=== PATIENT | male | born 1980 | race Caucasian/White ===

== ENCOUNTER 2017-08-14 18:34 | Emergency (ER) | payer BC ==
[2017-08-14] MEDS ORDERED: SUBLIMAZE 100 MCG/2 ML IV ONE (19:23)
[2017-08-14] MEDS ORDERED: Sodium Chloride 0.9% 1000 ML 1,000 ML IV STA (19:23)
[2017-08-14] MEDS ORDERED: Zofran 4 MG/2 ML VIAL IV ONE (19:23)
--- NOTE | 2017-08-14 19:28 | ERPHSYRPT ---
- History of Present Illness Time Seen by Provider: 08/14/17 19:20 Historian: patient Exam Limitations: no limitations Patient Subjective Stated Complaint: RLQ abdominal Pain beginning yesterday. Mild Nausea Triage Nursing Assessment: PT presents to the ED with complaints of RLQ abdominal pain. Pt states onset yesterday, worsening with touch. No distress noted, skin PWD. Physician History: Pt started c/o diffuse abdominal pain, nausea, now pain is located in the right lower abdomen. He denies fever, chills, diarrhea, vomiting or urinary complaints. Timing/Duration: yesterday Activities at Onset: none Quality: sharpness Abdominal Pain Onset Location: RLQ Pain Radiation: no radiation Severity of Pain-Max: moderate Severity of Pain-Current: moderate Modifying Factors: Improves With: nothing Associated Symptoms: nausea Previous symptoms: no prior history Allergies/Adverse Reactions: No Known Drug Allergies Allergy (Verified 08/14/17 18:55) Home Medications: Sertraline HCl [Sertraline HCl] 25 mg PO DAILY 08/14/17 [History] Hx Tetanus, Diphtheria Vaccination/Date Given: No Hx Influenza Vaccination/Date Given: Yes Hx Pneumococcal Vaccination/Date Given: No Immunizations Up to Date: Yes - Review of Systems Constitutional: No Symptoms Abdominal/Gastrointestinal: Abdominal Pain, Nausea All Other Systems: Reviewed and Negative - Past Medical History Pertinent Past Medical History: No Neurological History: No Pertinent History ENT History: No Pertinent History Cardiac History: No Pertinent History Respiratory History: No Pertinent History Endocrine Medical History: No Pertinent History Musculoskeletal History: No Pertinent History GI Medical History: No Pertinent History History: No Pertinent History Psycho-Social History: Depression Male Reproductive Disorders: No Pertinent History - Past Surgical History Past Surgical History: No Neuro Surgical History: No Pertinent History Cardiac: No Pertinent History Respiratory: No Pertinent History Gastrointestinal: No Pertinent History Genitourinary: No Pertinent History Musculoskeletal: No Pertinent History Male Surgical History: No Pertinent History - Social History Smoking Status: Never smoker Exposure to second hand smoke: No Drug Use: none Patient Lives Alone: No - Nursing Vital Signs Nursing Vital Signs: Initial Vital Signs Temperature 98.7 F 08/14/17 18:49 Pulse Rate 75 08/14/17 18:49 Respiratory Rate 16 08/14/17 18:49 Blood Pressure 134/86 08/14/17 18:49 O2 Sat by Pulse Oximetry 99 08/14/17 18:49 Pain Scale Pain Intensity 2 - Physical Exam General Appearance: no apparent distress Eye Exam: eyes nml inspection Ears, Nose, Throat Exam: normal ENT inspection, moist mucous membranes Neck Exam: normal inspection, non-tender Respiratory Exam: normal breath sounds, lungs clear, airway intact Cardiovascular Exam: regular rate/rhythm, normal heart sounds, normal peripheral pulses, No murmur Gastrointestinal/Abdomen Exam: soft, normal bowel sounds, tenderness (mod. severe RLQ), No pulsatile mass, No rebound, No hernia Back Exam: normal inspection, No CVA tenderness Extremity Exam: normal inspection Neurologic Exam: alert, oriented x 3, normal mood/affect Skin Exam: normal color, warm, dry, No rash Lymphatic Exam: No adenopathy SpO2 Interpretation: normal SpO2: 99 Oxygen Delivery: Room Air - Course Nursing assessment & vital signs reviewed: Yes - CT Exams Abdomen/Pelvis CT Interpretation: Tele-radiologist Report, Other (appendix normal, small focus acute epiploic mappendigitis vs diverticulitis, no free air or fluid.) Ordered Tests: Active Orders 24 hr Category Date Time Status IV Insertion STAT Care 08/14/17 19:23 Active ABDOMEN AND PELVIS W CONTRAST [CT] Stat Exams 08/14/17 19:24 Taken CBC W DIFF Stat Lab 08/14/17 19:23 Completed CMP Stat Lab 08/14/17 19:23 Completed LIPASE Stat Lab 08/14/17 19:23 Completed PROTIME WITH INR Stat Lab 08/14/17 19:23 Completed PTT Stat Lab 08/14/17 19:25 Completed UA W/RFX UR CULTURE Stat Lab 08/14/17 20:30 Completed Medication Summary Generic Name Dose Route Start Last Admin Trade Name Freq PRN Reason Stop Dose Admin Ciprofloxacin 500 mg 08/15/17 22:01 Cipro 500 Mg PO 08/15/17 22:02 NOW ONE Metronidazole 500 mg 08/15/17 22:01 Flagyl 500 Mg PO 08/15/17 22:02 NOW ONE Discontinued Medications Generic Name Dose Route Start Last Admin Trade Name Freq PRN Reason Stop Dose Admin Fentanyl Citrate 50 mcg 08/14/17 19:23 08/14/17 19:40 Sublimaze 100 Mcg/2 Ml IV 08/14/17 19:24 50 mcg STAT ONE Administration Fentanyl Citrate Confirm 08/14/17 19:30 Sublimaze 100 Mcg/2 Ml Administered 08/14/17 19:31 Dose 100 mcg .ROUTE .STK-MED ONE Sodium Chloride 1,000 mls @ 999 mls/hr 08/14/17 19:23 08/14/17 21:56 Sodium Chloride 0.9% 1000 Ml IV 08/14/17 20:23 Infused .Q1H1M STA Infusion Sodium Chloride Confirm 08/14/17 19:30 Sodium Chloride 0.9% 1000 Ml Administered 08/14/17 19:31 Dose 1,000 mls @ ud .ROUTE .STK-MED ONE Ondansetron HCl 4 mg 08/14/17 19:23 08/14/17 19:40 Zofran 4 Mg/2 Ml Vial IV 08/14/17 19:24 4 mg STAT ONE Administration Ondansetron HCl Confirm 08/14/17 19:30 Zofran 4 Mg/2 Ml Vial Administered 08/14/17 19:31 Dose 4 mg .ROUTE .STK-MED ONE Lab/Rad Data: Laboratory Result Diagrams 08/14/17 19:23 08/14/17 19:23 Laboratory Results 08/14/17 08/14/17 08/14/17 Range/Units 20:30 19:25 19:23 WBC (4.0-10.5) K/mm3 RBC (4.1-5.6) M/mm3 Hgb (12.5-18.0) gm/dl Hct (42-50) % MCV (78-100) fl MCH (26-32) pg MCHC (32-36) g/dl RDW (11.5-14.0) % Plt Count (150-450) K/mm3 MPV (6-9.5) fl Gran % (36.0-66.0) % Eos # (Auto) (0-0.5) Absolute Lymphs (auto) (1.0-4.6) Absolute Monos (auto) (0.0-1.3) Lymphocytes % (24.0-44.0) % Monocytes % (0.0-12.0) % Eosinophils % (0.00-5.0) % Basophils % (0.0-0.4) % Absolute Granulocytes (1.4-6.9) Basophils # (0-0.4) PT 12.6 (8.83-12.87) SECONDS INR 1.08 (0.8-3.0) APTT 32.4 (24.1-36.1) SECONDS Sodium (137-145) mmol/L Potassium (3.5-5.1) mmol/L Chloride (98-107) mmol/L Carbon Dioxide (22-30) mmol/L Anion Gap (5-15) MEQ/L BUN (9-20) mg/dL Creatinine (0.66-1.25) mg/dL Estimated GFR ML/MIN Glucose (74-106) mg/dL Calcium (8.4-10.2) mg/dL Total Bilirubin (0.2-1.3) mg/dL AST (17-59) U/L ALT (0-50) U/L Alkaline Phosphatase (38-126) U/L Serum Total Protein (6.3-8.2) g/dL Albumin (3.5-5.0) g/dL Lipase (23-300) U/L Ur Collection Type CLEAN CATCH Urine Color YELLOW (YELLOW) Urine Appearance CLEAR (CLEAR) Urine pH 5.0 (5-6) Ur Specific [place] 1.025 (1.005-1.025) Urine Protein NEGATIVE (Negative) Urine Ketones NEGATIVE (NEGATIVE) Urine Blood NEGATIVE (0-5) Rigoberto/ul Urine Nitrite NEGATIVE (NEGATIVE) Urine Bilirubin NEGATIVE (NEGATIVE) Urine Urobilinogen NORMAL (0-1) mg/dL Ur Leukocyte Esterase NEGATIVE (NEGATIVE) Urine Culture Reflexed NO (NO) Urine Glucose NEGATIVE (NEGATIVE) mg/dL Specimen Received 08/14/17 2030 08/14/17 08/14/17 Range/Units 19:23 19:23 WBC 11.7 H (4.0-10.5) K/mm3 RBC 5.54 (4.1-5.6) M/mm3 Hgb 17.5 (12.5-18.0) gm/dl Hct 48.8 (42-50) % MCV 88.1 (78-100) fl MCH 31.6 (26-32) pg MCHC 35.9 (32-36) g/dl RDW 12.4 (11.5-14.0) % Plt Count 168 (150-450) K/mm3 MPV 10.8 H (6-9.5) fl Gran % 77.5 H (36.0-66.0) % Eos # (Auto) 0.17 (0-0.5) Absolute Lymphs (auto) 1.33 (1.0-4.6) Absolute Monos (auto) 1.11 (0.0-1.3) Lymphocytes % 11.4 L (24.0-44.0) % Monocytes % 9.5 (0.0-12.0) % Eosinophils % 1.5 (0.00-5.0) % Basophils % 0.1 (0.0-0.4) % Absolute Granulocytes 9.03 H (1.4-6.9) Basophils # 0.01 (0-0.4) PT (8.83-12.87) SECONDS INR (0.8-3.0) APTT (24.1-36.1) SECONDS Sodium 140 (137-145) mmol/L Potassium 4.1 (3.5-5.1) mmol/L Chloride 99 (98-107) mmol/L Carbon Dioxide 31 H (22-30) mmol/L Anion Gap 14.3 (5-15) MEQ/L BUN 20 (9-20) mg/dL Creatinine 0.98 (0.66-1.25) mg/dL Estimated GFR > 60.0 ML/MIN Glucose 111 H (74-106) mg/dL Calcium 9.9 (8.4-10.2) mg/dL Total Bilirubin 0.80 (0.2-1.3) mg/dL AST 29 (17-59) U/L ALT 29 (0-50) U/L Alkaline Phosphatase 80 (38-126) U/L Serum Total Protein 8.2 (6.3-8.2) g/dL Albumin 4.8 (3.5-5.0) g/dL Lipase 48 (23-300) U/L Ur Collection Type Urine Color (YELLOW) Urine Appearance (CLEAR) Urine pH (5-6) Ur Specific [place] (1.005-1.025) Urine Protein (Negative) Urine Ketones (NEGATIVE) Urine Blood (0-5) Rigoberto/ul Urine Nitrite (NEGATIVE) Urine Bilirubin (NEGATIVE) Urine Urobilinogen (0-1) mg/dL Ur Leukocyte Esterase (NEGATIVE) Urine Culture Reflexed (NO) Urine Glucose (NEGATIVE) mg/dL Specimen Received - Progress Progress: improved Progress Note: 05/30/18 22:04 patient feels better, denies nausea, afebrile, stable, I discussed our results with him and his , he was given PO Cipro and Flagyl, called Dr Alejandro, discussed his findings and current condition, he agreed to discharge him on liquid diet, and PO Cipro, Flagyl, to return if severe pain, vomiting, fever> 102 F, and follow up with his physician in 2-3 days. Discussed with : Elmer Will see patient in: office Counseled pt/family regarding: lab results, diagnosis, need for follow-up, rad results - Departure Time of Disposition: 22:07 Departure Disposition: Home Clinical Impression: Diverticulitis Condition: Stable Critical Care Time: No Referrals: MAXINE ALEJANDRO MD [Primary Care Provider] - Instructions: Diverticulitis (DC) Additional Instructions: Rest x 2-3 days, continue liquid diet, follow up with your physician in 2-3 days , return if severe pain, vomiting, fever> 102 F! Prescriptions: Ciprofloxacin [Cipro 500 MG] 500 mg PO BID #20 tablet Metronidazole 500 mg [Flagyl 500 MG] 500 mg PO TID #30 tablet
[2017-08-14] MEDS ORDERED: SUBLIMAZE 100 MCG/2 ML ONE (19:30)
[2017-08-14] MEDS ORDERED: Sodium Chloride 0.9% 1000 ML 1,000 ML ONE (19:30)
[2017-08-14] MEDS ORDERED: Zofran 4 MG/2 ML VIAL ONE (19:30)
[2017-08-14 19:54] LABS: BASOPHIL % 0.1 % (0.0-0.4); Basophil (Absolute #) 0.01 (0-0.4); Eosinophil % 1.5 % (0.00-5.0); Eosinophil (Absolute #) 0.17 (0-0.5); Granulocyte Absolute (ANC) 9.03 (1.4-6.9); Granulocytes % 77.5 % (36.0-66.0); Hematocrit 48.8 % (42-50); Hemoglobin 17.5 gm/dl (12.5-18.0); Lymphocyte (Absolute #) 1.33 (1.0-4.6); Lymphocytes % 11.4 % (24.0-44.0); Mean Cell Volume 88.1 fl (78-100); Mean Corpuscular Hemoglobin 31.6 pg (26-32); Mean Corpuscular Hgb Concent. 35.9 g/dl (32-36); Mean Platelet Volume 10.8 fl (6-9.5); Monocyte (Absolute #) 1.11 (0.0-1.3); Monocytes % 9.5 % (0.0-12.0); Platelet Count 168 K/mm3 (150-450); Red Blood Count 5.54 M/mm3 (4.1-5.6); Red Cell Distribution Width 12.4 % (11.5-14.0); White Blood Count 11.7 K/mm3 (4.0-10.5)
[2017-08-14 20:19] LABS: INR 1.08 (0.8-3.0)
[2017-08-14 20:22] LABS: ALBUMIN 4.8 g/dL (3.5-5.0); ALKALINE PHOSPHATASE 80 U/L (38-126); ANION GAP 14.3 MEQ/L (5-15); BLOOD UREA NITROGEN 20 mg/dL (9-20); CHLORIDE 99 mmol/L (98-107); Calcium 9.9 mg/dL (8.4-10.2); Carbon Dioxide 31 mmol/L (22-30); Creatinine 1 0.98 mg/dL (0.66-1.25); Glucose 111 mg/dL (74-106); LIPASE 48 U/L (23-300); Potassium 4.1 mmol/L (3.5-5.1); SGOT/AST 29 U/L (17-59); SGPT/ALT 29 U/L (0-50); SODIUM 140 mmol/L (137-145); Total Protein 8.2 g/dL (6.3-8.2)
[2017-08-14 20:31] LABS: Appearance CLEAR (CLEAR); Bilirubin NEGATIVE (NEGATIVE); Blood NEGATIVE Ery/ul (0-5); Glucose NEGATIVE (NEGATIVE); Ketones NEGATIVE (NEGATIVE); Leukocyte Esterase NEGATIVE (NEGATIVE); Nitrite NEGATIVE (NEGATIVE); Protein,Urine Dip NEGATIVE (Negative); Specific Gravity 1.025 (1.005-1.025); Urobilinogen NORMAL mg/dL (0-1)
[2017-08-14 21:49] VITALS: BP 129/73; PULSE 72
[2017-08-14] MEDS ORDERED: Cipro 500 MG ONE (22:04)
[2017-08-14] MEDS ORDERED: Flagyl 500 MG ONE (22:04)
[2017-08-14] MEDS ORDERED: NORCO 5/325 MG PO ONE (22:07)
[2017-08-14 22:08] VITALS: O2SAT 99
[2017-08-14] MEDS ORDERED: NORCO 5/325 MG ONE (22:09)
--- NOTE | 2017-08-15 11:15 | XRAY ---
Exam: CT of the abdomen and pelvis with IV contrast from 08/14/2017. CTDI: 14.68 Comparison: None. Indication: 36-year-old male with right lower quadrant abdominal pain 2 days associated with nausea and loss of appetite. Technique: Post-IV contrast axial images were obtained through the abdomen and pelvis during and following automated injection of 80 cc of Isovue-370 contrast material. Delayed axial images were obtained as well. Reconstructed coronal and sagittal images were created and reviewed. Findings: Within the right lower quadrant I believe I can detect a normal sized appendix within a retrocecal region on sagittal image #67 located inferomedially. However, there is some mild bowel wall thickening and hazy increased attenuation of the adjacent fat with some thickening of the lateral conal fascia on the right within the proximal to mid ascending colon.. This suggests an inflammatory process such as epiploic appendagitis or colitis. I do not appreciate any definite diverticula within this region. A small enterolith within the proximal cecum may be present. Scattered stool is seen throughout the colon. There may be some minimal sigmoid colon diverticulosis without evidence of diverticulitis. There is no free intraperitoneal air or significant free intraperitoneal fluid. The lung bases appear clear. The liver and spleen appear unremarkable. The gallbladder is distended. No dense intraluminal gallbladder calcifications are seen. The pancreas and adrenal glands appear normal. The kidneys reveal no mass, hydronephrosis, or renal calculi. The abdominal aorta is normal diameter. No abnormal mesenteric or retroperitoneal lymphadenopathy is seen. The pelvis reveals no free fluid or enlarged lymph nodes. Scattered calcified phleboliths are seen within the lower pelvis bilaterally. The urinary bladder appears unremarkable. The seminal vesicles are prominent in a symmetric manner. The prostate gland appears normal. The skeleton reveals no acute fracture or aggressive bone lesion. Impression: 1. The study is abnormal. There appears to be some mild bowel wall thickening within the proximal to mid ascending colon posteriorly with increased attenuation of the adjacent pericolonic fat and thickening of the lateral conal fascia. I do not appreciate any definite diverticula. Nevertheless, I believe this is most likely due to an inflammatory process. Consider acute epiploic appendagitis versus colitis. No free intraperitoneal air or free intraperitoneal fluid is seen. 2. Minimal sigmoid colon diverticulosis without evidence of acute diverticulitis. 3. Mild colonic stool retention is seen without evidence of bowel obstruction. 4. No other acute process is seen within the abdomen or pelvis. The appendix appears unremarkable.
[2017-08-15] MEDS ORDERED: Cipro 500 MG PO ONE (22:01)
[2017-08-15] MEDS ORDERED: Flagyl 500 MG PO ONE (22:01)
== END 2017-08-14 22:17 | disposition home or self-care (01) ==
LOC: ED 18:34
DX: K57.92 Diverticulitis of intestine, part unspecified, without perforation or abscess without bleeding (principal)
CPT/HCPCS: 36000; 36415; 74177; 80053; 81002; 83690; 85025; 85610; 85730; 96360; 96374; 96375; 99284; J2405; J3010; A9270-GY